=== PATIENT | male | born 1970 | race Two or more races ===

== ENCOUNTER 2018-08-04 14:21 | Inpatient (IN) | payer OTHER ==
[~2018-08-04] VITALS: Ht 167.6 cm; Wt 88.4 kg
[2018-08-04 19:20] VITALS: BP 115/72
[2018-08-05] MEDS ORDERED: BISACODYL 10 MG SUPP PR PRN (01:00)
[2018-08-05] MEDS ORDERED: morphine SULFATE 10 MG/ML, 1ML IVPush PRN (01:00)
[2018-08-05] MEDS ORDERED: ONDANSETRON 2MG/ML, 2ML IVPush PRN (01:00)
[2018-08-05] MEDS ORDERED: ACETAMINOPHEN 325 MG TABLET PO PRN (01:00)
[2018-08-05] MEDS: D5%-0.45% NACL 1,000 ML IV SCH ×3 (01:30→20:27)
[2018-08-05] MEDS: PANTOPRAZOLE 40 MG IV IVPush SCH ×2 (01:30→13:40)
[2018-08-05 02:24] VITALS: BP 109/71
[2018-08-05 05:50] LABS: MEAN CORPUSCULAR HEMOGLOBIN 20.5 pg (27.5-34.5); MEAN CORPUSCULAR HGB CONC 30.6 g/dL (33.2-36.2); MEAN CORPUSCULAR VOLUME 67.1 fL (81-97); MEAN PLATELET VOLUME 9.7 fL (7.4-10.4); PLATELET COUNT 293 x10^3/uL (130-400); RED BLOOD COUNT 4.15 x10^6/uL (4.38-5.82); RED CELL DISTRIBUTION WIDTH 26.8 % (9.4-14.8)
[2018-08-05 05:54] LABS: CHLORIDE 114 mmol/L (98-107)
[2018-08-05 06:08] LABS: ALANINE AMINOTRANSFERASE 38 U/L (12-78); ALKALINE PHOSPHATASE 40 U/L (45-117); ANION GAP 5 mmol/L (5-15); BILIRUBIN,TOTAL 0.5 mg/dL (0.2-1.0); CREATININE 0.72 mg/dL (0.7-1.3); TOTAL PROTEIN 5.8 g/dL (6.4-8.2)
[2018-08-05 06:22] LABS: MD MORPH REVIEW ONLY
[2018-08-05 06:24] LABS: ANISOCYTOSIS 2+
[2018-08-05 06:25] LABS: <PLATELET ESTIMATE> ADEQUATE; <PLT MORPHOLOGY> NORMAL PLT MORPH; MICROCYTOSIS 2+; OVALOCYTES 2+; SCHISTOCYTES 1+; TARGET CELLS 1+
[2018-08-05 06:26] LABS: ACANTHOCYTES 1+; HYPOCHROMIA 2+
[2018-08-05 06:27] LABS: LYMPHOCYTES % (AUTO) 26 % (22-44); MONOCYTES % (AUTO) 11 % (2-9); NEUTROPHILS % (AUTO) 60 % (42-75)
[2018-08-05 06:28] LABS: BASOPHILS # (AUTO) 0.03 x10^3/uL (0-0.1); BASOPHILS % (AUTO) 1 % (0-1); EOSINOPHILS # (AUTO) 0.11 x10^3/uL (0-0.4); EOSINOPHILS % (AUTO) 2 % (1-7); LYMPHOCYTES # (AUTO) 1.22 x10^3/uL (1-3.4); NEUTROPHILS # (AUTO) 2.82 x10^3/uL (1.8-6.8)
[2018-08-05 07:02] VITALS: BP 115/74
[2018-08-05 12:57] VITALS: BP 109/72
[2018-08-05] MEDS: IRON SUCROSE COMPLEX 100MG/5ML IV SCH (13:59)
[2018-08-05 20:21] VITALS: BP 120/78
[2018-08-06] MEDS: PANTOPRAZOLE 40 MG IV IVPush SCH ×2 (00:56→13:08)
[2018-08-06 01:30] VITALS: BP 97/63
[2018-08-06 04:26] LABS: MEAN CORPUSCULAR VOLUME 67.1 fL (81-97); MEAN PLATELET VOLUME 9.2 fL (7.4-10.4); PLATELET COUNT 281 x10^3/uL (130-400); RED BLOOD COUNT 4.37 x10^6/uL (4.38-5.82); RED CELL DISTRIBUTION WIDTH 25.5 % (9.4-14.8)
[2018-08-06 04:29] LABS: ALANINE AMINOTRANSFERASE 35 U/L (12-78); ALBUMIN 2.9 g/dL (3.4-5.0); ANION GAP 5 mmol/L (5-15); CHLORIDE 114 mmol/L (98-107); CREATININE 0.74 mg/dL (0.7-1.3)
[2018-08-06 04:32] LABS: ALKALINE PHOSPHATASE 41 U/L (45-117); BILIRUBIN,TOTAL 0.3 mg/dL (0.2-1.0); TOTAL PROTEIN 5.8 g/dL (6.4-8.2)
[2018-08-06 04:42] LABS: MEAN CORPUSCULAR HGB CONC 29.8 g/dL (33.2-36.2)
[2018-08-06 04:43] LABS: MD YES
[2018-08-06 04:47] LABS: ANISOCYTOSIS 1+; EOS#(MANUAL) 0.08 x10^3/uL (0.0-0.4); EOS% (MANUAL) 2 % (1-7); LYMPH#(MANUAL) 1.35 x10^3/uL (1-3.4); LYMPHS% (MANUAL) 33 % (22-44); MICROCYTOSIS 1+; MONOS#(MANUAL) 0.53 x10^3/uL (0.3-2.7); MONOS% (MANUAL) 13 % (2-9); SEG#(MANUAL) 2.13 x10^3/uL (1.8-6.8); SEGS% (MANUAL) 52 % (42-75)
[2018-08-06 04:48] LABS: <PLATELET ESTIMATE> ADEQUATE; OVALOCYTES 2+; SCHISTOCYTES 1+
[2018-08-06 04:49] LABS: LARGE PLATELETS 1+
[2018-08-06] MEDS ORDERED: ONDANSETRON 2MG/ML, 2ML ONE (06:58)
[2018-08-06] MEDS ORDERED: DEXAMETHASONE 4 MG/ML, 1ML ONE (06:58)
[2018-08-06] MEDS ORDERED: ROCURONIUM 10 MG/ML,10ML ONE (06:58)
[2018-08-06] MEDS ORDERED: SUCCINYLCHOLINE 20 MG/ML, 10ML ONE (06:58)
[2018-08-06] MEDS ORDERED: EPHEDRINE 50 MG/ML, 1ML ONE (06:58)
[2018-08-06] MEDS ORDERED: PROPOFOL 10 MG/ML, 20ML ONE (06:58)
[2018-08-06 08:00] VITALS: BP 115/76
[2018-08-06] MEDS ORDERED: OXYcodone 5 MG/5 ML ORAL.SOL UDC PO PRN (08:00)
[2018-08-06] MEDS ORDERED: HALOPERIDOL 5 MG/ML IV PRN (08:00)
[2018-08-06] MEDS ORDERED: PROMETHAZINE 25 MG/ML, 1ML IV PRN (08:00)
[2018-08-06] MEDS ORDERED: hydrALAzine 20 MG/ML, 1ML IV PRN (08:00)
[2018-08-06] MEDS ORDERED: LABETALOL 5MG/ML, 20ML IV PRN (08:00)
[2018-08-06] MEDS ORDERED: MEPERIDINE/PF 25MG/0.5ML IVPush PRN (08:00)
[2018-08-06] MEDS ORDERED: DIAZEPAM 5 MG/ML, 2ML IVPush PRN (08:00)
[2018-08-06] MEDS ORDERED: MORPHINE SULFATE 4 MG/ML, 1ML IVPush PRN (08:00)
[2018-08-06] MEDS ORDERED: PROMETHAZINE 12.5 MG SUPP PR PRN (08:00)
[2018-08-06] MEDS ORDERED: ALBUTEROL SULFATE 2.5 MG/3 ML NPPB PRN (08:00)
[2018-08-06] MEDS ORDERED: ONDANSETRON ODT 8 MG PO PRN (08:00)
[2018-08-06] MEDS ORDERED: FENTANYL PF 100 MCG/2ML IV PRN (08:00)
[2018-08-06] MEDS ORDERED: EPHEDRINE 50 MG/ML, 1ML IVPush PRN (08:00)
[2018-08-06] MEDS ORDERED: ONDANSETRON 2MG/ML, 2ML IV PRN (08:00)
[2018-08-06] MEDS ORDERED: MIDAZOLAM 1 MG/ML, 2ML IV PRN (08:00)
[2018-08-06] MEDS ORDERED: HYDROmorphone 2 MG/ML, 1ML IVPush PRN (08:00)
[2018-08-06] MEDS: IRON SUCROSE COMPLEX 100MG/5ML IV SCH (09:32)
[2018-08-06] MEDS ORDERED: TPN PER PHARMACY MC PRN (14:00)
[2018-08-06 15:00] VITALS: BP 94/59
[2018-08-06] MEDS ORDERED: DEXTROSE 10% 500 ML IV PRN (17:00)
[2018-08-06] MEDS ORDERED: FILTER, DISP 1.2 MICRON FOR TPN/PVN IV PRN (17:00)
[2018-08-06] MEDS ORDERED: AMINO ACID 10% 750 ML, DEXTROSE 70% 350 ML, FAT EMUL/SMOF TPN 175 ML, STERILE WATER 1,0... IV SCH (17:00)
[2018-08-06] MEDS ORDERED: PVN PER PHARMACY MC PRN (17:00)
[2018-08-06] MEDS: D5%-0.45% NACL 1,000 ML IV SCH (17:00)
[2018-08-06] MEDS ORDERED: DEXTROSE 50%, 50ML SYRINGE IVPush PRN (17:00)
[2018-08-06 19:31] VITALS: BP 99/53
[2018-08-06] MEDS: INSULIN REGULAR MEDIUM DOSE Q6H X 48HRS SQ-INSULIN SCH (20:30)
[2018-08-07] MEDS: PANTOPRAZOLE 40 MG IV IVPush SCH ×2 (01:06→14:45)
[2018-08-07] MEDS: INSULIN REGULAR MEDIUM DOSE Q6H X 48HRS SQ-INSULIN SCH ×4 (02:16→21:38)
[2018-08-07 02:22] VITALS: BP 107/70
[2018-08-07 05:10] LABS: MEAN CORPUSCULAR HEMOGLOBIN 21.2 pg (27.5-34.5); MEAN CORPUSCULAR HGB CONC 31.7 g/dL (33.2-36.2); MEAN CORPUSCULAR VOLUME 66.9 fL (81-97); MEAN PLATELET VOLUME 9.6 fL (7.4-10.4); PLATELET COUNT 303 x10^3/uL (130-400); RED CELL DISTRIBUTION WIDTH 27.4 % (9.4-14.8)
[2018-08-07 05:11] LABS: ALBUMIN 3.2 g/dL (3.4-5.0); CALCIUM 8.6 mg/dL (8.5-10.1); CHLORIDE 111 mmol/L (98-107)
[2018-08-07 05:18] LABS: ALANINE AMINOTRANSFERASE 33 U/L (12-78); ALKALINE PHOSPHATASE 42 U/L (45-117); ANION GAP 8 mmol/L (5-15); BILIRUBIN,TOTAL 0.3 mg/dL (0.2-1.0); CREATININE 0.75 mg/dL (0.7-1.3); TOTAL PROTEIN 6.3 g/dL (6.4-8.2); TRIGLYCERIDES 83 mg/dL (50-200)
[2018-08-07 06:08] LABS: BASOPHILS % (AUTO) 0 % (0-1); EOSINOPHILS % (AUTO) 0 % (1-7); LYMPHOCYTES # (AUTO) 0.67 x10^3/uL (1-3.4); LYMPHOCYTES % (AUTO) 9 % (22-44); MD SCAN; MONOCYTES # (AUTO) 0.74 x10^3/uL (0.2-0.8); MONOCYTES % (AUTO) 10 % (2-9); NEUTROPHILS % (AUTO) 81 % (42-75)
[2018-08-07 06:38] LABS: PREALBUMIN 13.1 mg/dL (20.0-40.0)
[2018-08-07 07:00] VITALS: BP 101/61
[2018-08-07] MEDS: IRON SUCROSE COMPLEX 100MG/5ML IV SCH (11:07)
[2018-08-07 14:15] VITALS: BP 111/69
[2018-08-07] MEDS ORDERED: [UNRECOGNIZED DRUG - OTHER] IV SCH (17:00)
[2018-08-07] MEDS ORDERED: FAT EMUL IV SCH (17:00)
[2018-08-07] MEDS ORDERED: AMINO ACID 10% IV SCH (17:00)
[2018-08-07] MEDS ORDERED: DEXTROSE 70% IV SCH (17:00)
[2018-08-07] MEDS ORDERED: FILTER, DISP 1.2 MICRON FOR TPN/PVN IV PRN (17:00)
[2018-08-07] MEDS ORDERED: SMOF TPN IV SCH (17:00)
[2018-08-07 20:46] VITALS: BP 106/67
[2018-08-08 01:27] VITALS: BP 106/70
[2018-08-08] MEDS: INSULIN REGULAR MEDIUM DOSE Q6H X 48HRS SQ-INSULIN SCH ×3 (03:00→15:00)
[2018-08-08] MEDS: PANTOPRAZOLE 40 MG IV IVPush SCH ×2 (03:28→17:00)
[2018-08-08 03:38] LABS: MEAN CORPUSCULAR HEMOGLOBIN 21.1 pg (27.5-34.5); MEAN CORPUSCULAR HGB CONC 31.7 g/dL (33.2-36.2); MEAN CORPUSCULAR VOLUME 66.7 fL (81-97); MEAN PLATELET VOLUME 9.6 fL (7.4-10.4); PLATELET COUNT 304 x10^3/uL (130-400); RED BLOOD COUNT 4.27 x10^6/uL (4.38-5.82); RED CELL DISTRIBUTION WIDTH 27.2 % (9.4-14.8)
[2018-08-08 03:51] LABS: ANION GAP 5 mmol/L (5-15); CALCIUM 8.3 mg/dL (8.5-10.1); CHLORIDE 111 mmol/L (98-107)
[2018-08-08 03:52] LABS: CREATININE 0.76 mg/dL (0.7-1.3)
[2018-08-08 03:58] LABS: MD YES
[2018-08-08 04:01] LABS: ANISOCYTOSIS 2+; HYPOCHROMIA 1+; LYMPH#(MANUAL) 1.56 x10^3/uL (1-3.4); LYMPHS% (MANUAL) 23 % (22-44); MICROCYTOSIS 2+; MONOS#(MANUAL) 0.14 x10^3/uL (0.3-2.7); MONOS% (MANUAL) 2 % (2-9); SEGS% (MANUAL) 75 % (42-75)
[2018-08-08 04:02] LABS: OVALOCYTES 2+; SCHISTOCYTES 1+
[2018-08-08 04:03] LABS: <PLATELET ESTIMATE> ADEQUATE; LARGE PLATELETS 1+; POLYCHROMASIA 1+
[2018-08-08] MEDS ORDERED: TPN PER PHARMACY MC PRN (07:00)
[2018-08-08 07:59] VITALS: BP 108/69
[2018-08-08] MEDS: IRON SUCROSE COMPLEX 100MG/5ML IV SCH (11:43)
[2018-08-08] MEDS ORDERED: OMNIPAQUE 350 MG/ML, 100ML BOTTLE ONE (13:01)
[2018-08-08 13:50] VITALS: BP 101/67
[2018-08-08] MEDS ORDERED: AMINO ACID 10% IV SCH (17:00)
[2018-08-08] MEDS ORDERED: DEXTROSE 70% IV SCH (17:00)
[2018-08-08] MEDS ORDERED: SMOF TPN IV SCH (17:00)
[2018-08-08] MEDS ORDERED: FILTER, DISP 1.2 MICRON FOR TPN/PVN IV PRN (17:00)
[2018-08-08] MEDS ORDERED: FAT EMUL IV SCH (17:00)
[2018-08-08] MEDS ORDERED: [UNRECOGNIZED DRUG - OTHER] IV SCH (17:00)
[2018-08-08 19:07] VITALS: BP 100/65
[2018-08-09 03:00] VITALS: BP 92/59
[2018-08-09] MEDS: PANTOPRAZOLE 40 MG IV IVPush SCH ×2 (03:06→16:07)
[2018-08-09] MEDS: D5%-0.45% NACL 1,000 ML IV SCH ×2 (03:09→04:25)
[2018-08-09 04:09] LABS: ANION GAP 5 mmol/L (5-15); CALCIUM 8.3 mg/dL (8.5-10.1); CHLORIDE 110 mmol/L (98-107); CREATININE 0.73 mg/dL (0.7-1.3)
[2018-08-09 08:31] VITALS: BP 95/60
[2018-08-09] MEDS: INSULIN REGULAR MEDIUM DOSE QDAY SQ-INSULIN SCH (09:00)
[2018-08-09] MEDS: IRON SUCROSE COMPLEX 100MG/5ML IV SCH (10:02)
[2018-08-09] MEDS ORDERED: TPN PER PHARMACY MC PRN (11:00)
[2018-08-09 12:55] VITALS: BP 101/65
[2018-08-09] MEDS ORDERED: SMOF TPN IV SCH (17:00)
[2018-08-09] MEDS ORDERED: [UNRECOGNIZED DRUG - OTHER] IV SCH (17:00)
[2018-08-09] MEDS ORDERED: FAT EMUL IV SCH (17:00)
[2018-08-09] MEDS ORDERED: AMINO ACID 10% IV SCH (17:00)
[2018-08-09] MEDS ORDERED: DEXTROSE 70% IV SCH (17:00)
[2018-08-09] MEDS: FILTER, DISP 1.2 MICRON FOR TPN/PVN IV PRN (17:09)
[2018-08-09 19:23] VITALS: BP 95/66
[2018-08-10 02:07] VITALS: BP 123/81
[2018-08-10] MEDS: PANTOPRAZOLE 40 MG IV IVPush SCH ×2 (04:23→16:23)
[2018-08-10 04:37] LABS: ANION GAP 6 mmol/L (5-15); CALCIUM 8.3 mg/dL (8.5-10.1); CHLORIDE 110 mmol/L (98-107); CREATININE 0.73 mg/dL (0.7-1.3)
[2018-08-10 06:13] LABS: MEAN CORPUSCULAR HEMOGLOBIN 21.4 pg (27.5-34.5); MEAN CORPUSCULAR HGB CONC 31.2 g/dL (33.2-36.2); MEAN CORPUSCULAR VOLUME 68.6 fL (81-97); MEAN PLATELET VOLUME 9.8 fL (7.4-10.4); PLATELET COUNT 255 x10^3/uL (130-400); RED BLOOD COUNT 4.28 x10^6/uL (4.38-5.82); RED CELL DISTRIBUTION WIDTH 28.2 % (9.4-14.8)
[2018-08-10 06:48] LABS: BASOPHILS # (AUTO) 0.03 x10^3/uL (0-0.1); BASOPHILS % (AUTO) 0 % (0-1); EOSINOPHILS # (AUTO) 0.12 x10^3/uL (0-0.4); EOSINOPHILS % (AUTO) 2 % (1-7); LYMPHOCYTES # (AUTO) 1.36 x10^3/uL (1-3.4); LYMPHOCYTES % (AUTO) 20 % (22-44); MONOCYTES # (AUTO) 0.67 x10^3/uL (0.2-0.8); MONOCYTES % (AUTO) 10 % (2-9); NEUTROPHILS # (AUTO) 4.63 x10^3/uL (1.8-6.8); NEUTROPHILS % (AUTO) 68 % (42-75)
[2018-08-10 06:49] LABS: MD SCAN
[2018-08-10 07:35] VITALS: BP 109/73
[2018-08-10] MEDS: INSULIN REGULAR MEDIUM DOSE QDAY SQ-INSULIN SCH (08:01)
[2018-08-10 13:47] VITALS: BP 132/71
[2018-08-10] MEDS ORDERED: [UNRECOGNIZED DRUG - OTHER] IV SCH (17:00)
[2018-08-10] MEDS ORDERED: AMINO ACID 10% IV SCH (17:00)
[2018-08-10] MEDS ORDERED: FAT EMUL IV SCH (17:00)
[2018-08-10] MEDS ORDERED: SMOF TPN IV SCH (17:00)
[2018-08-10] MEDS ORDERED: DEXTROSE 70% IV SCH (17:00)
[2018-08-10] MEDS: FILTER, DISP 1.2 MICRON FOR TPN/PVN IV PRN (18:19)
[2018-08-10 20:15] VITALS: BP 95/60
[2018-08-11 02:49] VITALS: BP 93/60
[2018-08-11] MEDS: PANTOPRAZOLE 40 MG IV IVPush SCH ×2 (04:50→16:18)
[2018-08-11 05:14] LABS: ANION GAP 6 mmol/L (5-15); CALCIUM 7.7 mg/dL (8.5-10.1); CHLORIDE 111 mmol/L (98-107)
[2018-08-11 05:17] LABS: CREATININE 0.63 mg/dL (0.7-1.3)
[2018-08-11] MEDS ORDERED: GLUCAGON 1 MG IM PRN (07:30)
[2018-08-11] MEDS ORDERED: DEXTROSE 50%, 50ML SYRINGE IVPush PRN (07:30)
[2018-08-11] MEDS ORDERED: DEXTROSE 4 GM TAB.CHEW PO PRN (07:30)
[2018-08-11] MEDS: INSULIN REGULAR MEDIUM DOSE QDAY SQ-INSULIN SCH (09:00)
[2018-08-11] MEDS: SODIUM CHLORIDE FLUSH 10ML SYR IVF SCH ×2 (10:04→21:56)
[2018-08-11 10:41] VITALS: BP 98/64
[2018-08-11 13:56] VITALS: BP 104/72
[2018-08-11] MEDS: D5%-0.45% NACL 1,000 ML IV SCH (16:24)
[2018-08-11] MEDS: FILTER, DISP 1.2 MICRON FOR TPN/PVN IV PRN (16:27)
[2018-08-11] MEDS ORDERED: FAT EMUL IV SCH (17:00)
[2018-08-11] MEDS ORDERED: DEXTROSE 70% IV SCH (17:00)
[2018-08-11] MEDS ORDERED: AMINO ACID 10% IV SCH (17:00)
[2018-08-11] MEDS ORDERED: [UNRECOGNIZED DRUG - OTHER] IV SCH (17:00)
[2018-08-11] MEDS ORDERED: SMOF TPN IV SCH (17:00)
[2018-08-11 19:45] VITALS: BP 97/57
[2018-08-11] MEDS: AMOXICILLIN 500 MG CAPSULE PO SCH (21:00)
[2018-08-11] MEDS: CLARITHROMYCIN 500 MG TABLET PO SCH (21:00)
[2018-08-12 01:04] VITALS: BP 93/61
[2018-08-12] MEDS: PANTOPRAZOLE 40 MG IV IVPush SCH ×2 (04:50→16:26)
[2018-08-12 06:56] LABS: ANION GAP 6 mmol/L (5-15); CALCIUM 8.1 mg/dL (8.5-10.1); CHLORIDE 110 mmol/L (98-107); CREATININE 0.67 mg/dL (0.7-1.3)
[2018-08-12 08:11] VITALS: BP 93/59
[2018-08-12] MEDS: INSULIN REGULAR MEDIUM DOSE QDAY SQ-INSULIN SCH (08:48)
[2018-08-12] MEDS: SODIUM CHLORIDE FLUSH 10ML SYR IVF SCH ×2 (08:48→20:18)
[2018-08-12] MEDS: CLARITHROMYCIN 500 MG TABLET PO SCH ×2 (09:00→20:17)
[2018-08-12] MEDS: AMOXICILLIN 500 MG CAPSULE PO SCH ×2 (09:00→20:17)
[2018-08-12 14:07] VITALS: BP 100/70
[2018-08-12] MEDS ORDERED: [UNRECOGNIZED DRUG - OTHER] IV SCH (17:00)
[2018-08-12] MEDS ORDERED: FAT EMUL IV SCH ×3 (17:00)
[2018-08-12] MEDS ORDERED: SMOF TPN IV SCH ×3 (17:00)
[2018-08-12] MEDS ORDERED: DEXTROSE 70% IV SCH ×3 (17:00)
[2018-08-12] MEDS ORDERED: FILTER, DISP 1.2 MICRON FOR TPN/PVN IV PRN (17:00)
[2018-08-12] MEDS ORDERED: [UNRECOGNIZED DRUG - OTHER] IV SCH (17:00)
[2018-08-12] MEDS ORDERED: AMINO ACID 10% IV SCH ×3 (17:00)
[2018-08-12] MEDS ORDERED: [UNRECOGNIZED DRUG - OTHER] IV SCH (17:00)
[2018-08-12 19:26] VITALS: BP 102/69
[2018-08-12 21:35] LABS: GASTRIC OCCULT BLD POSITIVE (NEGATIVE)
[2018-08-12 21:36] LABS: GASTRIC PH 4 (1-7)
[2018-08-13 01:44] VITALS: BP 99/62
[2018-08-13] MEDS: PANTOPRAZOLE 40 MG IV IVPush SCH ×2 (04:13→16:37)
[2018-08-13 04:58] LABS: ANION GAP 6 mmol/L (5-15); CALCIUM 8.3 mg/dL (8.5-10.1); CHLORIDE 110 mmol/L (98-107); CREATININE 0.66 mg/dL (0.7-1.3)
[2018-08-13] MEDS ORDERED: BUPIVACAINE/PF 0.5% ONE (06:58)
[2018-08-13] MEDS ORDERED: EPINEPHRINE 1 MG/ML, 1ML ONE (06:58)
[2018-08-13] MEDS: INSULIN REGULAR MEDIUM DOSE QDAY SQ-INSULIN SCH (07:51)
[2018-08-13 08:25] VITALS: BP 98/62
[2018-08-13] MEDS: SODIUM CHLORIDE FLUSH 10ML SYR IVF SCH ×2 (09:38→20:08)
[2018-08-13 12:49] VITALS: BP 105/69
[2018-08-13] MEDS ORDERED: FENTANYL PF 250 MCG/5ML ONE (13:55)
[2018-08-13] MEDS ORDERED: MIDAZOLAM 1 MG/ML, 2ML ONE (13:55)
[2018-08-13] MEDS ORDERED: CEFOTETAN PMX 2GM/50ML 50 ML IVPB ONE (14:42)
[2018-08-13] MEDS ORDERED: ONDANSETRON 2MG/ML, 2ML IV PRN (15:30)
[2018-08-13] MEDS ORDERED: MEPERIDINE/PF 25MG/0.5ML IVPush PRN (15:30)
[2018-08-13] MEDS ORDERED: hydrALAzine 20 MG/ML, 1ML IV PRN (15:30)
[2018-08-13] MEDS ORDERED: LABETALOL 5MG/ML, 20ML IV PRN (15:30)
[2018-08-13] MEDS ORDERED: PROMETHAZINE 25 MG/ML, 1ML IV PRN (15:30)
[2018-08-13] MEDS ORDERED: PROPOFOL 10 MG/ML, 20ML ONE (16:37)
[2018-08-13] MEDS ORDERED: ONDANSETRON 2MG/ML, 2ML ONE (16:38)
[2018-08-13] MEDS ORDERED: NEOSTIGMINE 1 MG/ML, 10ML ONE (16:38)
[2018-08-13] MEDS ORDERED: DEXAMETHASONE 4 MG/ML, 1ML ONE (16:38)
[2018-08-13] MEDS ORDERED: GLYCOPYRROLATE 0.2MG/1ML, 5ML ONE (16:38)
[2018-08-13] MEDS ORDERED: SUCCINYLCHOLINE 20 MG/ML, 10ML ONE (16:38)
[2018-08-13] MEDS ORDERED: METOPROLOL 1 MG/ML, 5ML ONE (16:43)
[2018-08-13] MEDS ORDERED: FENTANYL PF 100 MCG/2ML ONE ×2 (16:44→16:58)
[2018-08-13] MEDS ORDERED: HYDROmorphone 1 MG/ML, 1ML VIAL ONE (16:58)
[2018-08-13] MEDS ORDERED: FILTER, DISP 1.2 MICRON FOR TPN/PVN IV PRN (17:00)
[2018-08-13] MEDS ORDERED: AMINO ACID 10% IV SCH (17:00)
[2018-08-13] MEDS ORDERED: DEXTROSE 70% IV SCH (17:00)
[2018-08-13] MEDS ORDERED: SMOF TPN IV SCH (17:00)
[2018-08-13] MEDS ORDERED: [UNRECOGNIZED DRUG - OTHER] IV SCH (17:00)
[2018-08-13] MEDS: HYDROmorphone 2 MG/ML, 1ML IVPush PRN ×6 (17:00→18:11)
[2018-08-13] MEDS ORDERED: HYDROmorphone PCA 30 MG/30 ML IV PRN (17:00)
[2018-08-13] MEDS ORDERED: FAT EMUL IV SCH (17:00)
[2018-08-13] MEDS: FENTANYL PF 100 MCG/2ML IV PRN ×2 (17:06→17:22)
[2018-08-13] MEDS ORDERED: HYDROmorphone 2 MG/ML, 1ML ONE (17:31)
[2018-08-13 18:27] LABS: MEAN CORPUSCULAR HEMOGLOBIN 21.7 pg (27.5-34.5); MEAN CORPUSCULAR VOLUME 70.2 fL (81-97); MEAN PLATELET VOLUME 9.7 fL (7.4-10.4); PLATELET COUNT 223 x10^3/uL (130-400); RED BLOOD COUNT 3.89 x10^6/uL (4.38-5.82); RED CELL DISTRIBUTION WIDTH 31.6 % (9.4-14.8)
[2018-08-13 18:29] LABS: BASOPHILS # (AUTO) 0.03 x10^3/uL (0-0.1); BASOPHILS % (AUTO) 0 % (0-1); EOSINOPHILS # (AUTO) 0.02 x10^3/uL (0-0.4); EOSINOPHILS % (AUTO) 0 % (1-7); LYMPHOCYTES # (AUTO) 0.71 x10^3/uL (1-3.4); LYMPHOCYTES % (AUTO) 5 % (22-44); MD MORPH REVIEW ONLY; MONOCYTES # (AUTO) 0.38 x10^3/uL (0.2-0.8); MONOCYTES % (AUTO) 2 % (2-9); NEUTROPHILS # (AUTO) 14.57 x10^3/uL (1.8-6.8); NEUTROPHILS % (AUTO) 93 % (42-75)
[2018-08-13 18:30] LABS: ANISOCYTOSIS 2+; HYPOCHROMIA 1+; MICROCYTOSIS 2+; OVALOCYTES 2+; POLYCHROMASIA 1+; SCHISTOCYTES 1+
[2018-08-13 18:31] LABS: <PLATELET ESTIMATE> ADEQUATE
[2018-08-13 18:32] LABS: LARGE PLATELETS 1+
[2018-08-14 01:17] VITALS: BP 128/77
[2018-08-14] MEDS: PANTOPRAZOLE 40 MG IV IVPush SCH ×2 (03:42→17:46)
[2018-08-14 04:55] LABS: ANION GAP 3 mmol/L (5-15); CALCIUM 7.9 mg/dL (8.5-10.1); CHLORIDE 109 mmol/L (98-107); CREATININE 0.73 mg/dL (0.7-1.3)
[2018-08-14 05:51] LABS: BASOPHILS % (AUTO) 0 % (0-1); EOSINOPHILS # (AUTO) 0.02 x10^3/uL (0-0.4); EOSINOPHILS % (AUTO) 0 % (1-7); LYMPHOCYTES # (AUTO) 0.42 x10^3/uL (1-3.4); LYMPHOCYTES % (AUTO) 3 % (22-44); MD SCAN; MEAN CORPUSCULAR HEMOGLOBIN 22.4 pg (27.5-34.5); MEAN CORPUSCULAR HGB CONC 31.4 g/dL (33.2-36.2); MEAN CORPUSCULAR VOLUME 71.3 fL (81-97); MEAN PLATELET VOLUME 11.7 fL (7.4-10.4); MONOCYTES # (AUTO) 1.54 x10^3/uL (0.2-0.8); MONOCYTES % (AUTO) 10 % (2-9); NEUTROPHILS # (AUTO) 13.66 x10^3/uL (1.8-6.8); NEUTROPHILS % (AUTO) 87 % (42-75); PLATELET COUNT 225 x10^3/uL (130-400); RED BLOOD COUNT 3.87 x10^6/uL (4.38-5.82); RED CELL DISTRIBUTION WIDTH 33.4 % (9.4-14.8)
[2018-08-14 07:18] VITALS: BP 123/72
[2018-08-14] MEDS: INSULIN REGULAR MEDIUM DOSE QDAY SQ-INSULIN SCH (08:17)
[2018-08-14] MEDS: SODIUM CHLORIDE FLUSH 10ML SYR IVF SCH ×2 (08:17→20:06)
[2018-08-14 13:30] VITALS: BP 115/70
[2018-08-14 15:47] LABS: CULTURE INDICATED? NO; MICROSCOPIC NOT IND
[2018-08-14] MEDS ORDERED: AMINO ACID 10% IV SCH (17:00)
[2018-08-14] MEDS ORDERED: FILTER, DISP 1.2 MICRON FOR TPN/PVN IV PRN ×2 (17:00)
[2018-08-14] MEDS ORDERED: FAT EMUL IV SCH (17:00)
[2018-08-14] MEDS ORDERED: DEXTROSE 70% IV SCH (17:00)
[2018-08-14] MEDS ORDERED: SMOF TPN IV SCH (17:00)
[2018-08-14] MEDS ORDERED: [UNRECOGNIZED DRUG - OTHER] IV SCH (17:00)
[2018-08-14 19:33] VITALS: BP 132/70
[2018-08-14] MEDS: D5%-0.45% NACL 1,000 ML IV SCH (20:19)
[2018-08-15 01:28] VITALS: BP 129/82
[2018-08-15] MEDS: PANTOPRAZOLE 40 MG IV IVPush SCH ×2 (05:49→16:01)
[2018-08-15 06:20] LABS: MEAN CORPUSCULAR HEMOGLOBIN 22.8 pg (27.5-34.5); MEAN CORPUSCULAR HGB CONC 32.2 g/dL (33.2-36.2); MEAN PLATELET VOLUME 11.5 fL (7.4-10.4); PLATELET COUNT 192 x10^3/uL (130-400); RED BLOOD COUNT 3.52 x10^6/uL (4.38-5.82); RED CELL DISTRIBUTION WIDTH 34.8 % (9.4-14.8)
[2018-08-15 06:22] LABS: CHLORIDE 105 mmol/L (98-107)
[2018-08-15 06:39] LABS: BASOPHILS # (AUTO) 0.08 x10^3/uL (0-0.1); BASOPHILS % (AUTO) 1 % (0-1); EOSINOPHILS # (AUTO) 0.22 x10^3/uL (0-0.4); EOSINOPHILS % (AUTO) 2 % (1-7); LYMPHOCYTES # (AUTO) 1.11 x10^3/uL (1-3.4); LYMPHOCYTES % (AUTO) 10 % (22-44); MD SCAN; MONOCYTES # (AUTO) 1.21 x10^3/uL (0.2-0.8); MONOCYTES % (AUTO) 10 % (2-9); NEUTROPHILS # (AUTO) 9.02 x10^3/uL (1.8-6.8); NEUTROPHILS % (AUTO) 78 % (42-75)
[2018-08-15 06:57] LABS: ALANINE AMINOTRANSFERASE 30 U/L (12-78); ALBUMIN 2.8 g/dL (3.4-5.0); ALKALINE PHOSPHATASE 53 U/L (45-117); ANION GAP 6 mmol/L (5-15); BILIRUBIN,TOTAL 0.3 mg/dL (0.2-1.0); CALCIUM 8.1 mg/dL (8.5-10.1); CREATININE 0.62 mg/dL (0.7-1.3); TOTAL PROTEIN 5.8 g/dL (6.4-8.2)
[2018-08-15] MEDS: INSULIN REGULAR MEDIUM DOSE QDAY SQ-INSULIN SCH (07:35)
[2018-08-15 08:09] VITALS: BP 107/67
[2018-08-15] MEDS: SODIUM CHLORIDE FLUSH 10ML SYR IVF SCH ×2 (10:47→19:43)
[2018-08-15 13:24] VITALS: BP 123/77
[2018-08-15] MEDS: HYDROmorphone 2 MG/ML, 1ML IV PRN ×3 (15:49→23:13)
[2018-08-15] MEDS ORDERED: AMINO ACID 10% IV SCH (17:00)
[2018-08-15] MEDS ORDERED: [UNRECOGNIZED DRUG - OTHER] IV SCH (17:00)
[2018-08-15] MEDS ORDERED: DEXTROSE 70% IV SCH (17:00)
[2018-08-15] MEDS ORDERED: SMOF TPN IV SCH (17:00)
[2018-08-15] MEDS ORDERED: FAT EMUL IV SCH (17:00)
[2018-08-15 19:45] VITALS: BP 117/71
[2018-08-16 01:30] VITALS: BP 104/65
[2018-08-16] MEDS: HYDROcodone/APAP 7.5-325MG/15ML UDC PO PRN ×5 (02:21→22:04)
[2018-08-16] MEDS: PANTOPRAZOLE 40 MG IV IVPush SCH ×2 (04:15→17:53)
[2018-08-16 04:36] LABS: ANION GAP 4 mmol/L (5-15); CALCIUM 7.9 mg/dL (8.5-10.1); CHLORIDE 105 mmol/L (98-107)
[2018-08-16 04:38] LABS: CREATININE 0.55 mg/dL (0.7-1.3)
[2018-08-16 07:40] VITALS: BP 103/63
[2018-08-16] MEDS: INSULIN REGULAR MEDIUM DOSE QDAY SQ-INSULIN SCH (09:00)
[2018-08-16 14:00] VITALS: BP 142/77
[2018-08-16] MEDS ORDERED: AMINO ACID 10% IV SCH (17:00)
[2018-08-16] MEDS ORDERED: DEXTROSE 70% IV SCH (17:00)
[2018-08-16] MEDS ORDERED: [UNRECOGNIZED DRUG - OTHER] IV SCH (17:00)
[2018-08-16] MEDS ORDERED: FAT EMUL IV SCH (17:00)
[2018-08-16] MEDS ORDERED: SMOF TPN IV SCH (17:00)
[2018-08-16] MEDS: SODIUM CHLORIDE FLUSH 10ML SYR IVF SCH ×2 (17:54→21:35)
[2018-08-16] MEDS: FILTER, DISP 1.2 MICRON FOR TPN/PVN IV PRN ×2 (17:54→17:57)
[2018-08-16 19:52] VITALS: BP 100/65
[2018-08-17] VITALS (7 sets, daily range): BP systolic 101–122; BP diastolic 65–86
[2018-08-17] MEDS: HYDROcodone/APAP 7.5-325MG/15ML UDC PO PRN ×5 (02:32→19:56)
[2018-08-17 03:02] LABS: MEAN CORPUSCULAR HEMOGLOBIN 22.1 pg (27.5-34.5); MEAN CORPUSCULAR HGB CONC 31.2 g/dL (33.2-36.2); MEAN CORPUSCULAR VOLUME 70.8 fL (81-97); MEAN PLATELET VOLUME 11.5 fL (7.4-10.4); PLATELET COUNT 182 x10^3/uL (130-400); RED BLOOD COUNT 3.26 x10^6/uL (4.38-5.82); RED CELL DISTRIBUTION WIDTH 34.9 % (9.4-14.8)
[2018-08-17 03:11] LABS: ANION GAP 5 mmol/L (5-15); CALCIUM 7.8 mg/dL (8.5-10.1); CHLORIDE 111 mmol/L (98-107); CREATININE 0.49 mg/dL (0.7-1.3)
[2018-08-17 03:13] LABS: MD YES
[2018-08-17 03:15] LABS: ANISOCYTOSIS 2+; BASOS#(MANUAL) 0.08 x10^3/uL (0-0.1); BASOS% (MANUAL) 1 % (0-1); EOS% (MANUAL) 4 % (1-7); HYPOCHROMIA 1+; LYMPH#(MANUAL) 1.22 x10^3/uL (1-3.4); LYMPHS% (MANUAL) 16 % (22-44); MICROCYTOSIS 2+; MONOS#(MANUAL) 0.38 x10^3/uL (0.3-2.7); MONOS% (MANUAL) 5 % (2-9); OVALOCYTES 2+; POLYCHROMASIA 1+; SEG#(MANUAL) 5.62 x10^3/uL (1.8-6.8); SEGS% (MANUAL) 74 % (42-75)
[2018-08-17 03:16] LABS: SCHISTOCYTES 1+
[2018-08-17 03:17] LABS: <PLATELET ESTIMATE> ADEQUATE; ECHINOCYTES 1+; LARGE PLATELETS 1+
[2018-08-17] MEDS: PANTOPRAZOLE 40 MG IV IVPush SCH ×2 (06:29→21:02)
[2018-08-17] MEDS: D5%-0.45% NACL 1,000 ML IV SCH (06:30)
[2018-08-17] MEDS: INSULIN REGULAR MEDIUM DOSE QDAY SQ-INSULIN SCH (08:05)
[2018-08-17] MEDS: SODIUM CHLORIDE FLUSH 10ML SYR IVF SCH ×2 (10:35→21:03)
[2018-08-17] MEDS ORDERED: SMOF TPN IV SCH (17:00)
[2018-08-17] MEDS ORDERED: [UNRECOGNIZED DRUG - OTHER] IV SCH (17:00)
[2018-08-17] MEDS ORDERED: DEXTROSE 70% IV SCH (17:00)
[2018-08-17] MEDS ORDERED: FAT EMUL IV SCH (17:00)
[2018-08-17] MEDS ORDERED: AMINO ACID 10% IV SCH (17:00)
[2018-08-17] MEDS: FILTER, DISP 1.2 MICRON FOR TPN/PVN IV PRN (19:17)
[2018-08-17 20:25] LABS: MEAN CORPUSCULAR HEMOGLOBIN 23.2 pg (27.5-34.5); MEAN CORPUSCULAR HGB CONC 31.8 g/dL (33.2-36.2); MEAN CORPUSCULAR VOLUME 72.9 fL (81-97); MEAN PLATELET VOLUME 10.9 fL (7.4-10.4); PLATELET COUNT 204 x10^3/uL (130-400); RED BLOOD COUNT 3.57 x10^6/uL (4.38-5.82); RED CELL DISTRIBUTION WIDTH 33.3 % (9.4-14.8)
[2018-08-17 20:40] LABS: ANISOCYTOSIS 2+; BASOPHILS # (AUTO) 0.01 x10^3/uL (0-0.1); BASOPHILS % (AUTO) 0 % (0-1); EOSINOPHILS % (AUTO) 3 % (1-7); HYPOCHROMIA 1+; LYMPHOCYTES # (AUTO) 0.91 x10^3/uL (1-3.4); LYMPHOCYTES % (AUTO) 12 % (22-44); MD MORPH REVIEW ONLY; MICROCYTOSIS 1+; MONOCYTES # (AUTO) 0.74 x10^3/uL (0.2-0.8); MONOCYTES % (AUTO) 10 % (2-9); NEUTROPHILS # (AUTO) 5.54 x10^3/uL (1.8-6.8); NEUTROPHILS % (AUTO) 75 % (42-75); OVALOCYTES 1+; POLYCHROMASIA 1+
[2018-08-17 20:41] LABS: <PLATELET ESTIMATE> ADEQUATE; CRENATED 1+; SCHISTOCYTES 1+; TARGET CELLS 1+
[2018-08-17 20:42] LABS: <PLT MORPHOLOGY> NORMAL PLT MORPH
[2018-08-18] MEDS: HYDROcodone/APAP 7.5-325MG/15ML UDC PO PRN ×4 (00:05→22:27)
[2018-08-18 00:55] VITALS: BP 144/74
[2018-08-18 05:10] LABS: MEAN CORPUSCULAR HEMOGLOBIN 23.3 pg (27.5-34.5); MEAN CORPUSCULAR VOLUME 72.8 fL (81-97); RED BLOOD COUNT 3.65 x10^6/uL (4.38-5.82); RED CELL DISTRIBUTION WIDTH 33.5 % (9.4-14.8)
[2018-08-18 06:04] LABS: MEAN PLATELET VOLUME 10.5 fL (7.4-10.4); PLATELET COUNT 224 x10^3/uL (130-400)
[2018-08-18 06:05] LABS: ANISOCYTOSIS 2+; BASOPHILS % (AUTO) 0 % (0-1); EOSINOPHILS # (AUTO) 0.13 x10^3/uL (0-0.4); EOSINOPHILS % (AUTO) 1 % (1-7); HYPOCHROMIA 1+; LYMPHOCYTES # (AUTO) 0.38 x10^3/uL (1-3.4); LYMPHOCYTES % (AUTO) 4 % (22-44); MD MORPH REVIEW ONLY; MICROCYTOSIS 2+; MONOCYTES # (AUTO) 0.73 x10^3/uL (0.2-0.8); MONOCYTES % (AUTO) 8 % (2-9); NEUTROPHILS # (AUTO) 7.61 x10^3/uL (1.8-6.8); NEUTROPHILS % (AUTO) 86 % (42-75); OVALOCYTES 1+; POLYCHROMASIA 1+; SCHISTOCYTES 1+; TARGET CELLS 1+
[2018-08-18 06:06] LABS: <PLATELET ESTIMATE> ADEQUATE; LARGE PLATELETS 1+
[2018-08-18 09:30] VITALS: BP 110/69
[2018-08-18 13:26] LABS: ANION GAP 7 mmol/L (5-15); CALCIUM 8.4 mg/dL (8.5-10.1); CHLORIDE 106 mmol/L (98-107); CREATININE 0.55 mg/dL (0.7-1.3)
[2018-08-18] MEDS: PANTOPRAZOLE 40 MG IV IVPush SCH ×2 (13:26→22:26)
[2018-08-18] MEDS: INSULIN REGULAR MEDIUM DOSE QDAY SQ-INSULIN SCH (13:39)
[2018-08-18] MEDS: AMOXICILLIN 500 MG CAPSULE PO SCH ×2 (14:00→22:26)
[2018-08-18] MEDS: CLARITHROMYCIN 500 MG TABLET PO SCH ×2 (14:00→22:27)
[2018-08-18] MEDS: SODIUM CHLORIDE FLUSH 10ML SYR IVF SCH ×2 (14:00→22:26)
[2018-08-18] MEDS: FERROUS SULFATE 325 MG TABLET PO SCH (14:00)
[2018-08-18] MEDS ORDERED: POTASSIUM CHLORIDE 20 MEQ in SODIUM CHLORIDE 0.9% 250 ML IV ONE ×2 (14:00→15:30)
[2018-08-18 15:00] VITALS: BP 120/78
[2018-08-18] MEDS ORDERED: DEXTROSE 70% IV SCH (17:00)
[2018-08-18] MEDS ORDERED: FAT EMUL IV SCH (17:00)
[2018-08-18] MEDS ORDERED: SMOF TPN IV SCH (17:00)
[2018-08-18] MEDS ORDERED: AMINO ACID 10% IV SCH (17:00)
[2018-08-18] MEDS ORDERED: [UNRECOGNIZED DRUG - OTHER] IV SCH (17:00)
[2018-08-18] MEDS: FILTER, DISP 1.2 MICRON FOR TPN/PVN IV PRN (17:55)
[2018-08-18 20:00] VITALS: BP 118/77
[2018-08-18] MEDS: D5%-0.45% NACL 1,000 ML IV SCH (22:34)
[2018-08-19 01:10] VITALS: BP 113/73
[2018-08-19] MEDS: HYDROcodone/APAP 7.5-325MG/15ML UDC PO PRN ×5 (05:07→21:21)
[2018-08-19 05:52] LABS: ALBUMIN 2.3 g/dL (3.4-5.0); ANION GAP 7 mmol/L (5-15); CALCIUM 8.1 mg/dL (8.5-10.1); CHLORIDE 109 mmol/L (98-107)
[2018-08-19 05:56] LABS: ALANINE AMINOTRANSFERASE 20 U/L (12-78); ALKALINE PHOSPHATASE 51 U/L (45-117); BILIRUBIN,TOTAL 0.7 mg/dL (0.2-1.0); CREATININE 0.43 mg/dL (0.7-1.3); TOTAL PROTEIN 5.5 g/dL (6.4-8.2)
[2018-08-19 06:06] LABS: MEAN CORPUSCULAR HEMOGLOBIN 22.6 pg (27.5-34.5); MEAN CORPUSCULAR HGB CONC 31.3 g/dL (33.2-36.2); MEAN PLATELET VOLUME 10.4 fL (7.4-10.4); PLATELET COUNT 227 x10^3/uL (130-400)
[2018-08-19 06:21] LABS: MD MORPH REVIEW ONLY
[2018-08-19 06:22] LABS: <PLATELET ESTIMATE> ADEQUATE; ANISOCYTOSIS 2+; HYPOCHROMIA 1+; MICROCYTOSIS 2+; OVALOCYTES 1+; POLYCHROMASIA 1+; SCHISTOCYTES 1+; TARGET CELLS 1+
[2018-08-19 06:23] LABS: <PLT MORPHOLOGY> NORMAL PLT MORPH
[2018-08-19 06:37] LABS: BASOPHILS # (AUTO) 0.01 x10^3/uL (0-0.1); BASOPHILS % (AUTO) 0 % (0-1); EOSINOPHILS # (AUTO) 0.37 x10^3/uL (0-0.4); EOSINOPHILS % (AUTO) 6 % (1-7); LYMPHOCYTES # (AUTO) 1.02 x10^3/uL (1-3.4); LYMPHOCYTES % (AUTO) 16 % (22-44); MONOCYTES # (AUTO) 0.78 x10^3/uL (0.2-0.8); MONOCYTES % (AUTO) 12 % (2-9); NEUTROPHILS # (AUTO) 4.19 x10^3/uL (1.8-6.8); NEUTROPHILS % (AUTO) 66 % (42-75)
[2018-08-19 08:12] VITALS: BP 98/64
[2018-08-19] MEDS: AMOXICILLIN 500 MG CAPSULE PO SCH ×2 (08:32→21:22)
[2018-08-19] MEDS: PANTOPROZOLE 40MG TABLET PO SCH ×2 (08:33→21:21)
[2018-08-19] MEDS: CLARITHROMYCIN 500 MG TABLET PO SCH ×2 (08:33→21:21)
[2018-08-19] MEDS: SODIUM CHLORIDE FLUSH 10ML SYR IVF SCH ×2 (08:34→21:21)
[2018-08-19] MEDS: FERROUS SULFATE 325 MG TABLET PO SCH (08:34)
[2018-08-19] MEDS: INSULIN REGULAR MEDIUM DOSE QDAY SQ-INSULIN SCH (08:35)
[2018-08-19 14:10] VITALS: BP 101/71
[2018-08-19] MEDS ORDERED: DEXTROSE 70% IV SCH (17:00)
[2018-08-19] MEDS ORDERED: [UNRECOGNIZED DRUG - OTHER] IV SCH (17:00)
[2018-08-19] MEDS ORDERED: SMOF TPN IV SCH (17:00)
[2018-08-19] MEDS ORDERED: AMINO ACID 10% IV SCH (17:00)
[2018-08-19] MEDS ORDERED: FAT EMUL IV SCH (17:00)
[2018-08-19] MEDS: FILTER, DISP 1.2 MICRON FOR TPN/PVN IV PRN (17:24)
[2018-08-19 19:57] VITALS: BP 120/81
[2018-08-20 00:21] VITALS: BP 121/73
[2018-08-20] MEDS: HYDROcodone/APAP 7.5-325MG/15ML UDC PO PRN ×5 (01:59→21:00)
[2018-08-20 05:23] LABS: ANION GAP 4 mmol/L (5-15); CHLORIDE 109 mmol/L (98-107); CREATININE 0.52 mg/dL (0.7-1.3)
[2018-08-20 05:46] LABS: MEAN CORPUSCULAR HEMOGLOBIN 23.2 pg (27.5-34.5); MEAN CORPUSCULAR HGB CONC 32.3 g/dL (33.2-36.2); MEAN PLATELET VOLUME 10.1 fL (7.4-10.4); PLATELET COUNT 262 x10^3/uL (130-400); RED BLOOD COUNT 3.43 x10^6/uL (4.38-5.82); RED CELL DISTRIBUTION WIDTH 33.6 % (9.4-14.8)
[2018-08-20 06:21] LABS: MD YES
[2018-08-20 06:23] LABS: BASOS#(MANUAL) 0.06 x10^3/uL (0-0.1); BASOS% (MANUAL) 1 % (0-1); EOS#(MANUAL) 0.53 x10^3/uL (0.0-0.4); EOS% (MANUAL) 9 % (1-7); LYMPH#(MANUAL) 1.36 x10^3/uL (1-3.4); LYMPHS% (MANUAL) 23 % (22-44); MONOS#(MANUAL) 0.24 x10^3/uL (0.3-2.7); MONOS% (MANUAL) 4 % (2-9); SEG#(MANUAL) 3.72 x10^3/uL (1.8-6.8); SEGS% (MANUAL) 63 % (42-75)
[2018-08-20 06:24] LABS: ANISOCYTOSIS 2+; HYPOCHROMIA 1+; POLYCHROMASIA 1+; SCHISTOCYTES 1+; TARGET CELLS 1+
[2018-08-20 06:25] LABS: <PLATELET ESTIMATE> ADEQUATE; <PLT MORPHOLOGY> NORMAL PLT MORPH; MICROCYTOSIS 1+
[2018-08-20 07:16] VITALS: BP 103/67
[2018-08-20] MEDS: INSULIN REGULAR MEDIUM DOSE QDAY SQ-INSULIN SCH (08:22)
[2018-08-20] MEDS: PANTOPROZOLE 40MG TABLET PO SCH ×2 (08:23→21:00)
[2018-08-20] MEDS: CLARITHROMYCIN 500 MG TABLET PO SCH ×2 (08:23→21:00)
[2018-08-20] MEDS: FERROUS SULFATE 325 MG TABLET PO SCH (08:23)
[2018-08-20] MEDS: AMOXICILLIN 500 MG CAPSULE PO SCH ×2 (08:23→21:00)
[2018-08-20] MEDS: SODIUM CHLORIDE FLUSH 10ML SYR IVF SCH ×2 (08:23→21:00)
[2018-08-20 13:58] VITALS: BP 117/77
[2018-08-20] MEDS ORDERED: FILTER, DISP 1.2 MICRON FOR TPN/PVN IV PRN (17:00)
[2018-08-20] MEDS: DEXTROSE 70% IV SCH (17:54)
[2018-08-20] MEDS: FAT EMUL IV SCH (17:54)
[2018-08-20] MEDS: [UNRECOGNIZED DRUG - OTHER] IV SCH (17:54)
[2018-08-20] MEDS: SMOF TPN IV SCH (17:54)
[2018-08-20] MEDS: AMINO ACID 10% IV SCH (17:54)
[2018-08-20 20:00] VITALS: BP 106/69
[2018-08-20] MEDS: D5%-0.45% NACL 1,000 ML IV SCH (23:21)
[2018-08-21] MEDS: HYDROcodone/APAP 7.5-325MG/15ML UDC PO PRN ×5 (01:16→21:56)
[2018-08-21 02:00] VITALS: BP 126/80
[2018-08-21 06:27] LABS: ANION GAP 5 mmol/L (5-15); CALCIUM 8.6 mg/dL (8.5-10.1); CHLORIDE 107 mmol/L (98-107)
[2018-08-21 06:29] LABS: CREATININE 0.52 mg/dL (0.7-1.3)
[2018-08-21 06:36] LABS: MEAN CORPUSCULAR HEMOGLOBIN 23.1 pg (27.5-34.5); MEAN CORPUSCULAR HGB CONC 31.8 g/dL (33.2-36.2); MEAN CORPUSCULAR VOLUME 72.5 fL (81-97); MEAN PLATELET VOLUME 10.2 fL (7.4-10.4); PLATELET COUNT 329 x10^3/uL (130-400); RED CELL DISTRIBUTION WIDTH 34.5 % (9.4-14.8)
[2018-08-21 06:45] LABS: BASOPHILS # (AUTO) 0.04 x10^3/uL (0-0.1); BASOPHILS % (AUTO) 1 % (0-1); EOSINOPHILS # (AUTO) 0.21 x10^3/uL (0-0.4); EOSINOPHILS % (AUTO) 3 % (1-7); LYMPHOCYTES # (AUTO) 1.09 x10^3/uL (1-3.4); LYMPHOCYTES % (AUTO) 15 % (22-44); MD MORPH REVIEW ONLY; MONOCYTES # (AUTO) 0.77 x10^3/uL (0.2-0.8); MONOCYTES % (AUTO) 11 % (2-9); NEUTROPHILS # (AUTO) 4.98 x10^3/uL (1.8-6.8); NEUTROPHILS % (AUTO) 70 % (42-75)
[2018-08-21 06:46] LABS: ANISOCYTOSIS 2+
[2018-08-21 06:47] LABS: HYPOCHROMIA 1+; MICROCYTOSIS 1+; POLYCHROMASIA 1+
[2018-08-21 06:49] LABS: <PLATELET ESTIMATE> ADEQUATE; LARGE PLATELETS 1+
[2018-08-21 08:18] VITALS: BP 115/76
[2018-08-21] MEDS: SODIUM CHLORIDE FLUSH 10ML SYR IVF SCH ×2 (08:49→21:56)
[2018-08-21] MEDS: CLARITHROMYCIN 500 MG TABLET PO SCH ×2 (08:49→21:57)
[2018-08-21] MEDS: FERROUS SULFATE 325 MG TABLET PO SCH (08:49)
[2018-08-21] MEDS: PANTOPROZOLE 40MG TABLET PO SCH ×2 (08:49→21:57)
[2018-08-21] MEDS: AMOXICILLIN 500 MG CAPSULE PO SCH ×2 (08:49→21:57)
[2018-08-21] MEDS: INSULIN REGULAR MEDIUM DOSE QDAY SQ-INSULIN SCH (08:55)
[2018-08-21 12:54] VITALS: BP 109/72
[2018-08-21] MEDS: SMOF TPN IV SCH (17:00)
[2018-08-21] MEDS: AMINO ACID 10% IV SCH (17:00)
[2018-08-21] MEDS: DEXTROSE 70% IV SCH (17:00)
[2018-08-21] MEDS: FAT EMUL IV SCH (17:00)
[2018-08-21] MEDS: [UNRECOGNIZED DRUG - OTHER] IV SCH (17:00)
[2018-08-21 18:55] VITALS: BP 125/70
[2018-08-22] MEDS: HYDROcodone/APAP 7.5-325MG/15ML UDC PO PRN ×4 (01:57→15:09)
[2018-08-22 04:00] VITALS: BP 130/74
[2018-08-22 06:55] LABS: OCCULT BLOOD NEGATIVE (NEGATIVE)
[2018-08-22 07:31] VITALS: BP 106/70
[2018-08-22] MEDS: FERROUS SULFATE 325 MG TABLET PO SCH (08:46)
[2018-08-22] MEDS: CLARITHROMYCIN 500 MG TABLET PO SCH (08:47)
[2018-08-22] MEDS: AMOXICILLIN 500 MG CAPSULE PO SCH (08:47)
[2018-08-22] MEDS: PANTOPROZOLE 40MG TABLET PO SCH (08:47)
[2018-08-22] MEDS: SODIUM CHLORIDE FLUSH 10ML SYR IVF SCH (08:48)
[2018-08-22] MEDS ORDERED: ACET325T14 PO (10:32)
[2018-08-22] MEDS ORDERED: AMOX-291 PO (10:32)
[2018-08-22] MEDS ORDERED: FERR-51 PO (10:32)
[2018-08-22] MEDS ORDERED: PANT40TA5 PO (10:32)
[2018-08-22] MEDS ORDERED: CLAR500T PO (10:32)
[2018-08-22] MEDS ORDERED: OXYC-302 PO (11:47)
[2018-08-22 15:14] VITALS: BP 114/77
== END 2018-08-22 18:20 | DRG 326 ==
LOC: 3NW 19:11
PROVIDERS: ADMIT Hospitalist; ATTEND Hospitalist
PROC: 0DC68ZZ Extirpation of Matter from Stomach, Via Natural or Artificial Opening Endoscopic (ICD-10-PCS; 2018-08-06)
PROC: 0DB68ZX Excision of Stomach, Via Natural or Artificial Opening Endoscopic, Diagnostic (ICD-10-PCS; 2018-08-06)
PROC: 0D968ZZ Drainage of Stomach, Via Natural or Artificial Opening Endoscopic (ICD-10-PCS; principal; 2018-08-06 12:00)
PROC: 02HV33Z Insertion of Infusion Device into Superior Vena Cava, Percutaneous Approach (ICD-10-PCS; 2018-08-08)
PROC: B5181ZA Fluoroscopy of Superior Vena Cava using Low Osmolar Contrast, Guidance (ICD-10-PCS; 2018-08-08)
PROC: B548ZZA Ultrasonography of Superior Vena Cava, Guidance (ICD-10-PCS; 2018-08-08)
PROC: 0D160ZA Bypass Stomach to Jejunum, Open Approach (ICD-10-PCS; 2018-08-13)
PROC: 0WJP4ZZ Inspection of Gastrointestinal Tract, Percutaneous Endoscopic Approach (ICD-10-PCS; 2018-08-13)
PROC: 0DB90ZZ Excision of Duodenum, Open Approach (ICD-10-PCS; 2018-08-13)
PROC: 07BB0ZX Excision of Mesenteric Lymphatic, Open Approach, Diagnostic (ICD-10-PCS; 2018-08-13)
PROC: 0D960ZZ Drainage of Stomach, Open Approach (ICD-10-PCS; 2018-08-13)
PROC: 0DB60ZZ Excision of Stomach, Open Approach (ICD-10-PCS; 2018-08-13 14:30)
PROC: 30233N1 Transfusion of Nonautologous Red Blood Cells into Peripheral Vein, Percutaneous Approach (ICD-10-PCS; 2018-08-17)
DX: C16.9 Malignant neoplasm of stomach, unspecified (principal); K25.4 Chronic or unspecified gastric ulcer with hemorrhage; K31.1 Adult hypertrophic pyloric stenosis; E44.1 Mild protein-calorie malnutrition; J98.11 Atelectasis; B96.81 Helicobacter pylori [H. pylori] as the cause of diseases classified elsewhere; D50.0 Iron deficiency anemia secondary to blood loss (chronic); K21.9 Gastro-esophageal reflux disease without esophagitis; F12.90 Cannabis use, unspecified, uncomplicated; K29.50 Unspecified chronic gastritis without bleeding; K80.20 Calculus of gallbladder without cholecystitis without obstruction; N28.1 Cyst of kidney, acquired; Z82.49 Family history of ischemic heart disease and other diseases of the circulatory system; Z53.31 Laparoscopic surgical procedure converted to open procedure; Z68.32 Body mass index [BMI] 32.0-32.9, adult; Z68.31 Body mass index [BMI] 31.0-31.9, adult
CPT/HCPCS: 36415; J3475; 36573; 71045; 71260; 74177; 80048; 80053; 81003; 82271; 82272; 82607; 82728; 82962; 83540; 83550; 83735; 84100; 84134; 84443; 84478; 85025; 86677; 86850; 86900; 86923; 88173; 88305; 88309; 88342; 93005; G0378; J0171; J0610; J1100; J1170; J1644; J1756; J2250; J2405; J2704; J2710; J3010; J3480; Q9967; C1751; C1765; C9113; J0330; J1720; J3420; J3490; J7050; P9016